=== PATIENT | female | born 1995 | race Caucasian/White ===

== ENCOUNTER 2016-05-14 02:33 | Emergency (ER) | payer BC, OTHER ==
[~2016-05-14] VITALS: Ht 162.6 cm; Wt 62.7 kg
[~2016-05-14 02:33] MED LIST: ACETAMINOPHEN W1 TA6 PO; BACTRIM DS 8001 TAB PO; CEFTIN500 MG PO; CEPHALEXIN250 M1 PO; CIPRO 500MG TA500 MG PO; CYMBALTA 30MG30 MG PO; CYMBALTA 60MG60 MG PO; EPIPEN 2-PAK1 MG/ML IM; FLEXERIL5 MG PO; HYDROCODONE AN473 M1 PO; MOTRIN 600600 MG/TAB PO; NO HOME MEDICATIONS; NORCO 325 MG-101 TAB PO; NORCO 325 MG-51 TAB PO; NORCO 325 MG-7.1 TAB PO; PEPCID 20MG TAB20 MG PO; PHENERGAN 25 TA25 MG PO; PHENERGAN W/CO120 M1 PO; PREDNISONE20 MG PO; PROMETHAZINE12.5 M5 PO; TAMIFLU 75MG75 MG PO; ULTRAM 50MG TAB50 MG PO; VENTOLIN0.09 MG IH; ZITHROMAX Z PA250 MG PO; ZOFRAN ODT4 MG PO; ZOFRAN8 MG PO
[2016-05-14 02:36] VITALS: TEMP 98.2
[2016-05-14 03:38] VITALS: BP 122/82; PULSE 86
== END 2016-05-14 03:39 | disposition home or self-care (01) ==
LOC: COL.ER 02:33
DX: M79.642 Pain in left hand (principal); J06.9 Acute upper respiratory infection, unspecified; R10.13 Epigastric pain

== ENCOUNTER 2016-07-28 21:06 | Emergency (ER) | payer BC, OTHER ==
[~2016-07-28] VITALS: Ht 162.6 cm; Wt 61.4 kg
[2016-07-28 21:07] VITALS: TEMP 99.1
[2016-07-28 22:27] LABS: BASO % 0.3 % (0.0-2.0); EOS % 0.1 % (0-4.0); GRAN # 7.1 (1.4-6.5); GRAN % 76.7 % (42.2-75.2); HEMATOCRIT 42.3 % (35.0-45.0); HEMOGLOBIN 13.9 g/dl (12.0-15.0); LYMPH # 1.5 (1.2-3.4); LYMPH % 16.6 % (20.0-51.0); MEAN CELL VOLUME 89 fl (80.0-95.0); MEAN CORPUSCULAR HEMOGLOBIN 29 pg (26.0-32.0); MEAN CORPUSCULAR HGB CONC 33 g/dl (33.0-37.0); MEAN PLATELET VOLUME 10.4 fl (7.4-10.4); MONO # 0.6 (0.1-0.6); MONO % 6.2 % (1.7-9.3); PLATELET COUNT 294 K/mm3 (130-400); RED BLOOD COUNT 4.76 M/mm3 (4.10-5.30); REDCELL DISTRIBUTION WIDTH-CV 12.8 % (11.5-14.5); WHITE BLOOD COUNT 9.3 K/mm3 (4.8-10.8)
[2016-07-28 22:51] LABS: ERYTHROCYTE SEDIMENTATION RATE 11 mm/hr (0-20)
[2016-07-28 22:57] LABS: ADJUSTED CALCIUM 9.1 mg/dL (8.4-10.2); ALBUMIN 4.9 gm/dL (3.5-5.0); BILIRUBIN,TOTAL 0.7 mg/dL (0.0-1.0); C-REACTIVE PROTEIN 2.4 mg/dL (0.0-0.9); CALCIUM 9.8 mg/dL (8.4-10.2); CREATININE, serum 0.75 mg/dL (0.52-1.25); POTASSIUM 3.7 mmol/L (3.4-5.0); TOTAL PROTEIN 8.5 gm/dL (6.4-8.2)
[2016-07-29 01:11] VITALS: BP 132/78; PULSE 78
== END 2016-07-29 01:13 | disposition home or self-care (01) ==
LOC: COL.ER 21:06
PROVIDERS: Emergency Medicine
DX: H53.8 Other visual disturbances (principal); R20.0 Anesthesia of skin; R20.2 Paresthesia of skin; R51 Headache; F41.9 Anxiety disorder, unspecified; F32.9 Major depressive disorder, single episode, unspecified
CPT/HCPCS: J1200; J2765